=== PATIENT | female | born 2000 | race Two or more races ===

== ENCOUNTER 2024-03-19 20:38 | Emergency (ER) | payer MEDICAID ==
[~2024-03-19] VITALS: Ht 167.6 cm; Wt 107.0 kg
[2024-03-19] MEDS: ACETAMINOPHEN 325 MG TABLET PO ONE (22:11)
[2024-03-19] MEDS ORDERED: IBUP-1953 PO (22:24)
[2024-03-19 22:32] VITALS: BP 134/78; TEMP 98.7; O2SAT 97
== END 2024-03-19 22:33 | disposition home or self-care (01) ==
LOC: ER 20:43
DX: S40.812A Abrasion of left upper arm, initial encounter (principal); S29.8XXA Other specified injuries of thorax, initial encounter; V89.0XXA Person injured in unspecified motor-vehicle accident, nontraffic, initial encounter; Y93.89 Activity, other specified; Y92.488 Other paved roadways as the place of occurrence of the external cause; Y99.8 Other external cause status
CPT/HCPCS: 70450-TC; 71045-TC